=== PATIENT | male | born 1965 | race Native Hawaiian/Other Pacific Islander ===

== ENCOUNTER 2016-09-17 09:49 | Outpatient (CLI) | payer OTHER | END 2016-09-17 20:12 | disposition home or self-care (01) | LOC: MRI 09:49 | DX: M48.06 Spinal stenosis, lumbar region (principal); M43.02 Spondylolysis, cervical region ==

== ENCOUNTER 2016-10-22 07:41 | Outpatient (CLI) | payer OTHER ==
[2016-10-22 09:05] LABS: PLATELET COUNT 305 K/uL (142-355)
[2016-10-22 09:27] LABS: POTASSIUM 3.7 mmol/L (3.6-5.2); SODIUM 136 mmol/L (136-145)
== END 2016-10-22 19:21 | disposition home or self-care (01) ==
LOC: LABW 07:41
PROVIDERS: Family Medicine
DX: I10 Essential (primary) hypertension (principal); E78.4 Other hyperlipidemia; M10.9 Gout, unspecified; Z13.6 Encounter for screening for cardiovascular disorders; E55.9 Vitamin D deficiency, unspecified
CPT/HCPCS: 36415; 80053; 80061; 81000; 82306; 83735; 84439; 84443; 84550; 85027; 93005

== ENCOUNTER 2016-10-31 09:31 | Outpatient (CLI) | payer OTHER ==
[2016-10-31 10:11] LABS: PLATELET COUNT 264 K/uL (142-355)
== END 2016-10-31 10:31 | disposition home or self-care (01) ==
LOC: LABW 09:31
PROVIDERS: Family Medicine
DX: D72.829 Elevated white blood cell count, unspecified (principal)
CPT/HCPCS: 36415; 85027

== ENCOUNTER 2016-12-02 20:13 | Outpatient (CLI) | payer OTHER | END 2016-12-02 20:17 | disposition short-term general hospital (02) | LOC: AMB 20:13 | DX: S00.83XA Contusion of other part of head, initial encounter (principal); Y04.0XXA Assault by unarmed brawl or fight, initial encounter; Y92.830 Public park as the place of occurrence of the external cause | CPT/HCPCS: A0425; A0427 ==

== ENCOUNTER 2016-12-02 20:22 | Emergency (ER) | payer OTHER ==
[~2016-12-02] VITALS: Ht 175.3 cm; Wt 104.3 kg
== END 2016-12-02 22:03 | disposition home or self-care (01) ==
LOC: ED 20:22
DX: S00.83XA Contusion of other part of head, initial encounter (principal); J32.0 Chronic maxillary sinusitis; F19.10 Other psychoactive substance abuse, uncomplicated; Y04.0XXA Assault by unarmed brawl or fight, initial encounter; Y92.830 Public park as the place of occurrence of the external cause
CPT/HCPCS: 80307; 80320; 81000; 99283; G0479

== ENCOUNTER 2016-12-20 13:26 | Outpatient (CLI) | payer OTHER | END 2016-12-20 19:50 | disposition home or self-care (01) | LOC: LAB 13:26 | DX: R19.7 Diarrhea, unspecified (principal) | CPT/HCPCS: 82272; 87045; 87205; 87328; 87329; 87493; 87798; 87899 ==

== ENCOUNTER 2017-05-29 15:58 | Observation (INO) | payer OTHER ==
[~2017-05-29] VITALS: Ht 175.3 cm; Wt 117.2 kg
[2017-05-29 16:32] LABS: PLATELET COUNT 423 K/uL (142-355)
[2017-05-29 17:09] LABS: POTASSIUM 3.8 mmol/L (3.6-5.2); SODIUM 135 mmol/L (136-145)
[2017-05-29 18:23] VITALS: BP 185/90; TEMP 99; Ht 175.3 cm; Wt 117.2 kg
[2017-05-29] MEDS ORDERED: NAPROSYN500 MG PO (18:31)
[2017-05-29] MEDS ORDERED: LOPID PO (18:32)
[2017-05-29] MEDS ORDERED: WELLBUTRIN100 M1 PO (18:33)
[2017-05-29] MEDS ORDERED: ALLO100T22 PO (18:33)
[2017-05-29] MEDS ORDERED: LOVASTATIN40 MG PO (18:34)
[2017-05-29] MEDS ORDERED: NEURONTIN 100M100 MG PO (18:34)
[2017-05-29] MEDS ORDERED: TRAM50TA PO (18:35)
[2017-05-29] MEDS ORDERED: TIZA4TAB5 PO (18:36)
[2017-05-29] MEDS ORDERED: COZAAR100 MG PO (18:36)
[2017-05-29] MEDS ORDERED: CLON0.1T16 PO ×2 (18:37→18:38)
[2017-05-29 19:38] LABS: POTASSIUM 3.8 mmol/L (3.6-5.2); SODIUM 134 mmol/L (136-145)
[2017-05-29 20:00] VITALS: BP 182/98; TEMP 99.3
[2017-05-30] VITALS: BP 121/85; TEMP 98.8
[2017-05-30 04:00] VITALS: BP 123/80; TEMP 98.5
[2017-05-30 08:00] VITALS: BP 129/79; TEMP 98.6
[2017-05-30 12:00] VITALS: BP 137/87; TEMP 98.7
== END 2017-05-30 15:58 | disposition home or self-care (01) ==
LOC: RAD 15:58 → MED/SURG 17:10
PROVIDERS: ADMIT Family Medicine
DX: E86.0 Dehydration (principal); R11.2 Nausea with vomiting, unspecified; R10.32 Left lower quadrant pain
CPT/HCPCS: 36415; 80053; 81000; 82150; 82948; 83690; 84439; 84443; 85027; 87040; 87077; 87185; 87186; 87205; 96360; 96361; 96367; 96372; 96374; 96375; 99220; G0378; J1170; J1956; J3490

== ENCOUNTER 2017-06-13 08:11 | Outpatient (CLI) | payer OTHER ==
[~2017-06-13 08:11] MED LIST: ALLO100T22 PO; CLON0.1T16 PO; COZAAR100 MG PO; LOPID PO; LOVASTATIN40 MG PO; NAPROSYN500 MG PO; NEURONTIN 100M100 MG PO; TIZA4TAB5 PO; TRAM50TA PO; WELLBUTRIN100 M1 PO
== END 2017-06-13 19:05 | disposition home or self-care (01) ==
LOC: CT 08:11
DX: R10.84 Generalized abdominal pain (principal); K62.5 Hemorrhage of anus and rectum; K59.09 Other constipation
CPT/HCPCS: Q9963

== ENCOUNTER 2019-02-03 08:56 | Outpatient (CLI) | payer OTHER | END 2019-02-03 19:51 | disposition home or self-care (01) | LOC: RAD 08:56 | DX: I10 Essential (primary) hypertension (principal) | CPT/HCPCS: 93005 ==

== ENCOUNTER 2019-09-25 01:59 | Outpatient (CLI) | payer OTHER | END 2019-09-25 02:06 | disposition short-term general hospital (02) | LOC: AMB 01:59 | DX: R06.02 Shortness of breath (principal); J70.5 Respiratory conditions due to smoke inhalation; X00.1XXA Exposure to smoke in uncontrolled fire in building or structure, initial encounter; Y92.038 Other place in apartment as the place of occurrence of the external cause | CPT/HCPCS: A0425; A0427 ==

== ENCOUNTER 2019-09-25 02:05 | Emergency (ER) | payer OTHER ==
[~2019-09-25] VITALS: Ht 175.3 cm; Wt 99.8 kg
[2019-09-25 02:30] LABS: POTASSIUM 4.2 mmol/L (3.6-5.2); SODIUM 136 mmol/L (136-145)
[2019-09-25 02:41] LABS: PLATELET COUNT 344 K/uL (142-355)
[2019-09-25 03:55] VITALS: BP 142/98; TEMP 97.7
== END 2019-09-25 03:55 | disposition short-term general hospital (02) ==
LOC: ED 02:05
PROVIDERS: Emergency Medicine
PROC: 0T9B70Z Drainage of Bladder with Drainage Device, Via Natural or Artificial Opening (ICD-10-PCS; principal; 2019-09-25)
PROC: 0BH17EZ Insertion of Endotracheal Airway into Trachea, Via Natural or Artificial Opening (ICD-10-PCS; 2019-09-25)
PROC: 5A1935Z Respiratory Ventilation, Less than 24 Consecutive Hours (ICD-10-PCS; 2019-09-25)
PROC: 0D9670Z Drainage of Stomach with Drainage Device, Via Natural or Artificial Opening (ICD-10-PCS; 2019-09-25)
DX: J70.5 Respiratory conditions due to smoke inhalation (principal); F12.90 Cannabis use, unspecified, uncomplicated; F15.90 Other stimulant use, unspecified, uncomplicated; R06.02 Shortness of breath; Z79.899 Other long term (current) drug therapy; X00.1XXA Exposure to smoke in uncontrolled fire in building or structure, initial encounter; Y92.009 Unspecified place in unspecified non-institutional (private) residence as the place of occurrence of the external cause
CPT/HCPCS: 36600; 43754; 51702; 80053; 80307; 81000; 82550; 82553; 82805; 83735; 83880; 84484; 85027; 85610; 85730; 87040; 90471; 90715; 93005; 94003; 96360; 96365; 96366; 96375; 96376; 99285; J0330; J0696; J2250; J2930; J3360; J3490

== ENCOUNTER 2019-11-21 00:49 | Emergency (ER) | payer OTHER ==
[~2019-11-21] VITALS: Ht 175.3 cm; Wt 99.8 kg
[2019-11-21 00:53] VITALS: BP 142/93; TEMP 97.7
== END 2019-11-21 02:03 | disposition home or self-care (01) ==
LOC: ED 00:49
DX: H60.8X1 Other otitis externa, right ear (principal); H92.01 Otalgia, right ear; X58.XXXA Exposure to other specified factors, initial encounter
CPT/HCPCS: 99282

== ENCOUNTER 2020-06-09 10:16 | Emergency (ER) | payer OTHER ==
[~2020-06-09] VITALS: Ht 175.3 cm; Wt 108.9 kg
[2020-06-09 10:24] VITALS: TEMP 98.9
[2020-06-09 12:14] VITALS: BP 179/88
== END 2020-06-09 12:18 | disposition home or self-care (01) ==
LOC: ED 10:16
PROC: 0HQGXZZ Repair Left Hand Skin, External Approach (ICD-10-PCS; principal; 2020-06-09)
PROC: 2W3HX1Z Immobilization of Left Thumb using Splint (ICD-10-PCS; 2020-06-09)
DX: S62.515A Nondisplaced fracture of proximal phalanx of left thumb, initial encounter for closed fracture (principal); S61.012A Laceration without foreign body of left thumb without damage to nail, initial encounter; W20.8XXA Other cause of strike by thrown, projected or falling object, initial encounter; Y92.89 Other specified places as the place of occurrence of the external cause
CPT/HCPCS: 90471; 90715; 96372; 99283; J0690; J1170; J1885; J2405

== ENCOUNTER 2020-06-24 16:48 | Emergency (ER) | payer OTHER ==
[~2020-06-24] VITALS: Ht 177.8 cm; Wt 104.3 kg
[2020-06-24 19:00] VITALS: BP 162/108; TEMP 97.5
== END 2020-06-24 19:00 | disposition home or self-care (01) ==
LOC: ED 16:48
PROC: 2W3HX1Z Immobilization of Left Thumb using Splint (ICD-10-PCS; principal; 2020-06-24)
DX: Z48.02 Encounter for removal of sutures (principal)
CPT/HCPCS: 99284